=== PATIENT | male | born 1955 | race American Indian/Alaskan Native ===

== ENCOUNTER 2019-03-14 11:20 | Inpatient (IN) | payer OTHER ==
--- NOTE | 2019-03-14 11:43 | Event Note ---
ED Screening Note ED Screening Note: co cp htn hpld smoker mom dec cva dad dec liver disease mild obesity has had this in the past-- gerd This initial assessment/diagnostic orders/clinical plan/treatment(s) is/are subject to change based on patients health status, clinical progression and re- assessment by fellow clinical providers in the ED. Further treatment and workup at subsequent clinical providers discretion. Patient/guardian urged not to elope from the ED as their condition may be serious if not clinically assessed and managed. Initial orders include: ekg labs xray
[2019-03-14] MEDS ORDERED: ZOFRAN IV ONE (11:57)
[2019-03-14] MEDS ORDERED: ASPIRIN PO ONE (11:57)
[2019-03-14] MEDS ORDERED: NITRO-BID 2% TP ONE (11:57)
[2019-03-14] MEDS ORDERED: SUBLIMAZE IV ONE (11:57)
--- NOTE | 2019-03-14 12:01 | Emergency Department Report ---
HPI - General Chief Complaint: Chest Pain Time Seen by Provider: 03/14/19 11:40 - HPI HPI: Room 18 The patient is a 63-year-old male presenting with a chief complaint of chest pain. The patient states approximately 2 hours prior to arrival he developed substernal chest pain described as sharp and intermittent in nature. Patient states he did have shortness of breath and nausea with this pain but denies vomiting or diaphoresis. Patient denies cough or fever. Patient currently gives his chest pain a score of 3-4/10. The patient states he's never had a stress test or cardiac catheterization Location: Chest Duration: [See above] Quality: Sharp Severity:3-4/10 Modifying factors: [see above] Context: [see above] Mode of transportation: [not driving] ED Past Medical Hx - Past Medical History Hx Hypertension: Yes Additional medical history: sleep apnea, high cholesterol - Surgical History Past Surgical History?: No - Family History Family history: no significant - Social History Smoking Status: Current Every Day Smoker (1/2 pack per day) Substance Use Type: None (denies illicit drug use), Alcohol (rarely) ED Review of Systems ROS: Stated complaint: CHEST PAIN/LEG PAIN Other details as noted in HPI Constitutional: denies: diaphoresis Eyes: denies: eye pain ENT: denies: throat pain Respiratory: shortness of breath Cardiovascular: chest pain Endocrine: no symptoms reported Gastrointestinal: nausea. denies: vomiting Genitourinary: denies: dysuria Musculoskeletal: denies: back pain Skin: denies: lesions Neurological: denies: headache Physical Exam - Physical Exam Vital Signs: Vital Signs 03/14/19 03/14/19 11:41 11:48 Temperature 98 F Pulse Rate 75 73 Respiratory 20 Rate Blood Pressure 142/85 [Left] O2 Sat by Pulse 99 Oximetry Physical Exam: GENERAL: The patient is well-developed well-nourished male lying on stretcher n ot appearing to be in acute distress. [] HEENT: Normocephalic. Atraumatic. Extraocular motions are intact. Patient has moist mucous membranes. NECK: Supple. Trachea midline CHEST/LUNGS: Clear to auscultation. There is no respiratory distress noted. HEART/CARDIOVASCULAR: Regular. There is no tachycardia. There is no gallop rub or murmur. ABDOMEN: Abdomen is soft, nontender. Patient has normal bowel sounds. There is no abdominal distention. SKIN: There is no rash. There is no edema. There is no diaphoresis. NEURO: The patient is awake, alert, and oriented. The patient is cooperative. The patient has normal speech MUSCULOSKELETAL: There is no evidence of acute injury. ED Course Vital Signs 03/14/19 03/14/19 11:41 11:48 Temperature 98 F Pulse Rate 75 73 Respiratory 20 Rate Blood Pressure 142/85 [Left] O2 Sat by Pulse 99 Oximetry ED Medical Decision Making - Lab Data Result diagrams: 03/14/19 12:27 03/14/19 12:27 Laboratory Tests 03/14/19 03/14/19 12:27 12:27 WBC 5.5 RBC 4.17 Hgb 13.7 Hct 40.1 MCV 96 H MCH 33 H MCHC 34 RDW 14.9 Plt Count 294 Lymph % (Auto) 30.1 [place] % (Auto) 13.4 H Eos % (Auto) 2.7 Baso % (Auto) Django Developer Lymph # 1.6 [place] # 0.7 Eos # 0.1 Baso # 0.0 Seg Neutrophils % 53.1 Seg Neutrophils # 2.9 Sodium 136 L Potassium 4.1 Chloride 101.5 Carbon Dioxide 21 L Anion Gap 18 BUN 15 Creatinine 1.4 Estimated GFR > 60 BUN/Creatinine Ratio 11 Glucose 96 Calcium 9.1 Troponin T < 0.010 - EKG Data -: EKG Interpreted by Me EKG shows normal: sinus rhythm Rate: normal - EKG Data When compared to previous EKG there are: previous EKG unavailable Interpretation: nonspecific ST-T wave shankar (biphasic T-wave in lead 3) - Radiology Data Radiology results: report reviewed (chest x-ray), image reviewed (chest x-ray) interpreted by me: Chest x-ray-no focal infiltrate, no pneumothorax [facility] [address] [place] [address] XRay Report Signed Patient: STEPHAN PEREZ JR MR#: [id number] : 1955 Acct:[id number] Age/Sex: 63 / M ADM Date: 03/14/19 Loc: ED Attending Dr: Ordering Physician: PASCALE BURRELL MD Date of Service: 03/14/19 Procedure(s): XR chest 1V ap Accession Number(s): [id number] cc: PASCALE BURRELL MD Fluoro Time In Minutes: CHEST 1 VIEW 12:02 PM INDICATION / CLINICAL INFORMATION: Chest pain and shortness of breath. COMPARISON: None available. FINDINGS: SUPPORT DEVICES: Non e. HEART / MEDIASTINUM: The heart size and pulmonary vasculature are normal. The aorta is normal in caliber. LUNGS / PLEURA: No significant pulmonary or pleural abnormality. No pneumothorax. ADDITIONAL FINDINGS: No significant additional findings. IMPRESSION: No acute findings. Signer Name: Pierre Block MD Signed: 03/14/2019 12:54 PM Workstation Name: [email or web address] Transcribed By: RT Dictated By: Pierre Block MD Electronically Authenticated By: Pierre Block MD Signed Date/Time: 03/14/19 1254 DD/ 1252 TD/TT: - Differential Diagnosis ACS, pericarditis, GERD Critical care attestation.: If time is entered above; I have spent that time in minutes in the direct care of this critically ill patient, excluding procedure time. ED Disposition Clinical Impression: Chest pain Disposition: OP ADMIT IP TO THIS HOSP Is pt being admited?: Yes Does the pt Need Aspirin: Yes Condition: Fair Instructions: Chest Pain (ED) Time of Disposition: 13:17 (hospitalist notified (Dr Armstrong))
--- NOTE | 2019-03-14 12:58 | XRay Report ---
CHEST 1 VIEW 12:02 PM INDICATION / CLINICAL INFORMATION: Chest pain and shortness of breath. COMPARISON: None available. FINDINGS: SUPPORT DEVICES: None. HEART / MEDIASTINUM: The heart size and pulmonary vasculature are normal. The aorta is normal in jessica jenny. LUNGS / PLEURA: No significant pulmonary or pleural abnormality. No pneumothorax. ADDITIONAL FINDINGS: No significant additional findings. IMPRESSION: No acute findings. Signer Name: Pierre Block MD Signed: 03/14/2019 12:54 PM Workstation Name: [id number]
[2019-03-14 13:03] LABS: Eosinophils # (Auto) 0.1 K/mm3 (0.0-0.4); Eosinophils % (Auto) 2.7 % (0.0-4.3); Hematocrit 40.1 % (35.5-45.6); Hemoglobin 13.7 gm/dl (11.8-15.2); Lymphocytes # (Auto) 1.6 K/mm3 (1.2-5.4); Lymphocytes % (Auto) 30.1 % (13.4-35.0); Mean Corpuscular HGB Conc 34 % (32-34); Mean Corpuscular Volume 96 fl (84-94); Monocytes # (Auto) 0.7 K/mm3 (0.0-0.8); Monocytes % (Auto) 13.4 % (0.0-7.3); Platelet Count 294 K/mm3 (140-440); Red Blood Count 4.17 M/mm3 (3.65-5.03); Red Cell Distribution Width 14.9 % (13.2-15.2)
[2019-03-14 13:07] LABS: BUN/Creatinine Ratio 11; Blood Urea Nitrogen 15 mg/dL (9-20); Calcium 9.1 mg/dL (8.4-10.2); Hemolysis Index 15
[2019-03-14] MEDS ORDERED: SODIUM CHLORIDE FLUSH SYRINGE 10 ML IV PRN (20:27)
[2019-03-14] MEDS ORDERED: DILAUDID IV PRN (20:27)
[2019-03-14] MEDS ORDERED: PERCOCET 5/325 PO PRN (20:27)
[2019-03-14] MEDS ORDERED: ZOFRAN IV PRN (20:27)
[2019-03-14] MEDS ORDERED: TYLENOL PO PRN (20:27)
--- NOTE | 2019-03-14 20:27 | History and Physical Report ---
History of Present Illness Date of examination: 03/14/19 Date of admission: 03/14/19 13:18 Chief complaint: CC Chest pain for 2 hours DEWAXER History of present illness: 63 y/o AAM with pmh of bph onychomycosis Depression and HLD comes in for CP for 2 hours prior to arrival.Chest pain is substrenal.4 on a scale of 1 to 10.associated with nausea.No diaphoresis ,palpitations or SOB.No radiation.No exacerbating or relieving factors.No recent travel.No fever or chills. Chest pain is intermittent.Dull in character. Past Medical History Hypertension sleep apnea, high cholesterol Bph Onychomycosis Depression Surgical History Past Surgical History?: No Family History Family history: no significant Social History Smoking Status: Current Every Day Smoker (1/2 pack per day) Substance Use Type: None (denies illicit drug use), Alcohol (rarely) Review of Systems ROS: Stated complaint: CHEST PAIN/LEG PAIN Other details as noted in HPI Constitutional: denies: diaphoresis Eyes: denies: eye pain ENT: denies: throat pain Respiratory: shortness of breath Cardiovascular: chest pain Endocrine: no symptoms reported Gastrointestinal: nausea. denies: vomiting Genitourinary: denies: dysuria Musculoskeletal: denies: back pain Skin: denies: lesions Neurological: denies: headache 14 point review of systems done--otherwise negative Medications and Allergies Allergies Allergy/AdvReac Type Severity Reaction Status Date / Time No Known Allergies Allergy Verified 03/14/19 11:41 Home Medications Medication Instructions Recorded Confirmed Last Taken Type AtorvaSTATin [Lipitor] 20 mg PO QHS 03/14/19 03/14/19 1 Day Ago History ~03/13/19 Tamsulosin [Flomax] 0.4 mg PO QDAY 03/14/19 03/14/19 1 Day Ago History ~03/13/19 Terbinafine (Nf) [LamiSIL] 250 mg PO QDAY 03/14/19 03/14/19 1 Day Ago History ~03/13/19 buPROPion XL [Wellbutrin Xl] 150 mg PO QAM 03/14/19 03/14/19 1 Day Ago History ~03/13/19 Exam - Constitutional Vitals: Temp Pulse Resp BP Pulse Ox 98 F 51 L 13 133/76 100 03/14/19 11:41 03/14/19 14:00 03/14/19 14:00 03/14/19 14:00 03/14/19 14:00 General appearance: Present: no acute distress, well-nourished - EENT Eyes: Present: PERRL ENT: hearing intact, clear oral mucosa - Neck Neck: Present: supple, normal ROM - Respiratory Respiratory effort: normal Respiratory: bilateral: CTA - Cardiovascular Heart rate: 55 Rhythm: regular Heart Sounds: Present: S1 & S2. Absent: rub, click - Extremities Extremities: no ischemia, pulses intact, pulses symmetrical, No edema Peripheral Pulses: within normal limits - Abdominal General gastrointestinal: Present: soft, non-tender, non-distended, normal bowel sounds Male genitourinary: Present: normal - Rectal Rectal Exam: deferred - Integumentary Integumentary: Present: clear, warm, dry - Musculoskeletal Musculoskeletal: gait normal, strength equal bilaterally - Psychiatric Psychiatric: appropriate mood/affect, intact judgment & insight - Neurologic Neurologic: CNII-XII intact, moves all extremities - Allied Health Allied health notes reviewed: nursing, case management Results - Labs CBC & Chem 7: 03/14/19 12:27 03/15/19 01:56 Labs: Laboratory Last Values WBC 5.5 K/mm3 (4.5-11.0) 03/14/19 12:27 RBC 4.17 M/mm3 (3.65-5.03) 03/14/19 12:27 Hgb 13.7 gm/dl (11.8-15.2) 03/14/19 12:27 Hct 40.1 % (35.5-45.6) 03/14/19 12:27 MCV 96 fl (84-94) H 03/14/19 12:27 MCH 33 pg (28-32) H 03/14/19 12:27 MCHC 34 % (32-34) 03/14/19 12:27 RDW 14.9 % (13.2-15.2) 03/14/19 12:27 Plt Count 294 K/mm3 (140-440) 03/14/19 12:27 Lymph % (Auto) 30.1 % (13.4-35.0) 03/14/19 12:27 [place] % (Auto) 13.4 % (0.0-7.3) H 03/14/19 12:27 Eos % (Auto) 2.7 % (0.0-4.3) 03/14/19 12:27 Baso % (Auto) Deputy General Counsel 03/14/19 12:27 Lymph # 1.6 K/mm3 (1.2-5.4) 03/14/19 12:27 [place] # 0.7 K/mm3 (0.0-0.8) 03/14/19 12:27 Eos # 0.1 K/mm3 (0.0-0.4) 03/14/19 12:27 Baso # 0.0 K/mm3 (0.0-0.1) 03/14/19 12:27 Seg Neutrophils % 53.1 % (40.0-70.0) 03/14/19 12:27 Seg Neutrophils # 2.9 K/mm3 (1.8-7.7) 03/14/19 12:27 Sodium 136 mmol/L (137-145) L 03/14/19 12:27 Potassium 4.1 mmol/L (3.6-5.0) 03/14/19 12:27 Chloride 101.5 mmol/L (98-107) 03/14/19 12:27 Carbon Dioxide 21 mmol/L (22-30) L 03/14/19 12:27 18 mmol/L 03/14/19 12:27 BUN 15 mg/dL (9-20) 03/14/19 12:27 1.4 mg/dL (0.8-1.5) 03/14/19 12:27 Estimated GFR > 60 ml/min 03/14/19 12:27 11 % 03/14/19 12:27 Glucose 96 mg/dL (75-100) 03/14/19 12:27 Calcium 9.1 mg/dL (8.4-10.2) 03/14/19 12:27 < 0.010 ng/mL (0.00-0.029) 03/14/19 12:27 Short CBC 03/14/19 Range/Units 12:27 WBC 5.5 (4.5-11.0) K/mm3 Hgb 13.7 (11.8-15.2) gm/dl Hct 40.1 (35.5-45.6) % Plt Count 294 (140-440) K/mm3 BMP 03/14/19 03/15/19 12:27 01:56 Sodium 136 L 136 L Potassium 4.1 4.4 Chloride 101.5 101.7 Carbon Dioxide 21 L 26 BUN 15 20 Creatinine 1.4 1.5 Glucose 96 103 H Calcium 9.1 8.3 L Cardiac Enzymes 03/14/19 03/14/19 03/15/19 Range/Units 12:27 20:37 01:56 Troponin T < 0.010 < 0.010 < 0.010 (0.00-0.029) ng/mL Liver Function 03/15/19 Range/Units 01:56 Total Bilirubin 0.20 (0.1-1.2) mg/dL AST 14 (5-40) units/L ALT 17 (7-56) units/L Alkaline Phosphatase 95 (35-129) units/L Albumin 3.5 L (3.9-5) g/dL Urine 03/14/19 Range/Units 21:45 Urine Color Yellow (Yellow) Urine pH 6.0 (5.0-7.0) Ur Specific Gilliam 1.026 (1.003-1.030) Urine Protein <15 mg/dl (Negative) mg/dL Urine Glucose (UA) Neg (Negative) mg/dL - Imaging and Cardiology EKG: report reviewed (Sinus Bradcardia borderline ST elevation) Chest x-ray: report reviewed (NAF) Assessment and Plan Advance Directives: Yes (Full code) VTE prophylaxis?: Chemical Plan of care discussed with patient/family: Yes - Patient Problems (1) Chest pain Current Visit: Yes Status: Acute Qualifiers: Chest pain type: unspecified Qualified Code(s): R07.9 - Chest pain, unspecified Plan to address problem: Chest pain --r/o Mi protocol Serial Troponins Lexiscan in AM Costochondritis and Gerd in differential diagnosis (2) BPH (benign prostatic hyperplasia) Current Visit: Yes Status: Chronic Qualifiers: Lower urinary tract symptom presence: symptoms present Lower urinary tract symptom detail: urinary hesitancy Qualified Code(s): N40.1 - Benign prostatic hyperplasia with lower urinary tract symptoms; R39.11 - Hesitancy of micturition Plan to address problem: Cont Flomax (3) HLD (hyperlipidemia) Current Visit: Yes Status: Chronic Qualifiers: Hyperlipidemia type: mixed hyperlipidemia Qualified Code(s): E78.2 - Mixed hyperlipidemia Plan to address problem: Cont statins (4) Onychomycosis Current Visit: Yes Status: Chronic Plan to address problem: Cont Terbinafine (5) Depression Current Visit: Yes Status: Chronic Qualifiers: Depression Type: unspecified Qualified Code(s): F32.9 - Major depressive disorder, single episode, unspecified Plan to address problem: Cont wellbutrin (6) Nicotine dependence Current Visit: Yes Status: Chronic Qualifiers: Nicotine product type: cigarettes Plan to address problem: Coinselled about smoking cessation.-less than 10 minutes Nicoderm patch initiated (7) DVT prophylaxis Current Visit: Yes Status: Acute Plan to address problem: Initiated on Lovenox and GI prophylaxis
[2019-03-14] MEDS ORDERED: TERBINAFINE 250 MG PO SCH (20:30)
[2019-03-14] MEDS: PEPCID PO SCH (21:34)
[2019-03-14] MEDS: FLOMAX PO SCH (21:34)
[2019-03-14] MEDS ORDERED: LOVENOX SUB-Q SCH (22:00)
[2019-03-14] MEDS ORDERED: SODIUM CHLORIDE FLUSH SYRINGE 10 ML IV SCH (22:00)
[2019-03-14 22:04] LABS: Bilirubin,Urine NEG (Negative); Blood,Urine NEG (Negative); Color,Urine Yellow (Yellow); Protein,Urine <15 mg/dL mg/dL (Negative)
[2019-03-15 02:55] LABS: Albumin 3.5 g/dL (3.9-5); Calcium 8.3 mg/dL (8.4-10.2)
[2019-03-15] MEDS ORDERED: LEXISCAN IV ONE (08:12)
[2019-03-15] MEDS ORDERED: WELLBUTRIN XL PO SCH (10:00)
[2019-03-15] MEDS ORDERED: HABITROL TD SCH (10:00)
[2019-03-15 10:06] VITALS: BP 113/57
[2019-03-15] MEDS: PEPCID PO SCH (10:27)
[2019-03-15] MEDS: FLOMAX PO SCH (10:27)
--- NOTE | 2019-03-15 10:53 | Discharge Summary ---
Providers - Providers Date of Admission: 03/14/19 13:18 Attending physician: ROYCE HARGROVE MD [facility] Reason for admission: Chest pain Condition: Fair Pertinent studies: Cardiac stress test; negative for acute ischemia Hospital course: 63 y/o AAM with pmh of bph onychomycosis Depression and HLD comes in for CP for 2 hours prior to arrival.Chest pain is substrenal.4 on a scale of 1 to 10.associated with nausea.No diaphoresis ,palpitations or SOB.No radiation.No exacerbating or relieving factors.No recent travel.No fever or chills. Chest pain is intermittent.Dull in character. Patient is admitted to the floor, cardiac enzymes were negative, EKG no STEMI, stress test done this morning was normal. Chest pain subsided and patient is discharged home in a stable condition. Patient advised to take his home medications. Patient was hemodynamically stable at the time of discharge. Disposition: - TO HOME OR SELFCARE Time spent for discharge: 32 minutes - Discharge Diagnoses (1) Chest pain Status: Acute Qualifiers: Chest pain type: unspecified Qualified Code(s): R07.9 - Chest pain, unspecified (2) BPH (benign prostatic hyperplasia) Status: Chronic Qualifiers: Lower urinary tract symptom presence: symptoms present Lower urinary tract symptom detail: urinary hesitancy Qualified Code(s): N40.1 - Benign prostatic hyperplasia with lower urinary tract symptoms; R39.11 - Hesitancy of micturition (3) Depression Status: Chronic Qualifiers: Depression Type: unspecified Qualified Code(s): F32.9 - Major depressive disorder, single episode, unspecified (4) HLD (hyperlipidemia) Status: Chronic Qualifiers: Hyperlipidemia type: mixed hyperlipidemia Qualified Code(s): E78.2 - Mixed hyperlipidemia (5) Nicotine dependence Status: Chronic Qualifiers: Nicotine product type: cigarettes (6) Onychomycosis Status: Chronic Core Measure Documentation - Palliative Care Palliative Care/ Comfort Measures: Not Applicable - Core Measures Any of the following diagnoses?: none Exam - Physical Exam Narrative exam: Not in cardiopulmonary distress. The patient appeared well nourished and normally developed. Vital signs as documented. Head exam is unremarkable. No scleral icterus . Neck is without jugular venous distension, thyromegaly, or carotid bruits. Lungs are clear to auscultation. Cardiac exam reveals regular rate and Rhythm. First and second heart sounds normal. No murmurs, rubs or gallops. Abdominal exam reveals normal bowel sounds, no masses, no organomegaly and no aortic enlargement. Extremities are nonedematous and both femoral and pedal pulses are normal. COMMUNICATIONS PROGRAMMER: Alert and oriented 3. No focal weakness. - Constitutional Vitals: Temp Pulse Resp BP Pulse Ox 97.3 F L 60 18 113/57 97 03/15/19 07:25 03/15/19 07:25 03/15/19 07:25 03/15/19 09:18 03/15/19 07:25 Plan Activity: no restrictions Weight Bearing Status: Full Weight Bearing Diet: low salt Follow up with: KIESHA TAVERAS MD [Primary Care Provider] - 3-5 Days
--- NOTE | 2019-03-15 14:18 | Treadmill Report ---
NUCLEAR CARDIAC IMAGING INDICATION FOR PROCEDURE: Chest pain. Informed consent was obtained. Vasodilator stress was achieved with the intravenous administration of 0.4 mg of Lexiscan per protocol. Nuclear cardiac imaging was performed following the intravenous administration of technetium-99m Myoview for the rest and stress acquisitions per protocol. Images were acquired in a 180-degree arc from 45 degrees MCMAHAN to 45 degrees LPO. After data acquisition and reconstruction, the images were processed and reoriented into the vertical long, horizontal long, and horizontal short axis slices. A polar color map of the horizontal short axis slices was generated and reviewed. The rotating planar images were reviewed in cinematic format on the computer console. Gated SPECT imaging demonstrates a post-stress left ventricular ejection fraction of 62% with normal wall motion. Myocardial perfusion imaging demonstrates no significant cavity change between stress and rest. No significant stress-induced perfusion defects are seen. Nuclear cardiac imaging demonstrates grossly normal post-stress left ventricular systolic function with no significant evidence for myocardial ischemia or necrosis. PSYCHIATRIC# [id number] EMERSON/RAJWINDER
== END 2019-03-15 12:22 | disposition home or self-care (01) | DRG 206 ==
LOC: ED 11:20 → 4A 13:18
PROVIDERS: ADMIT Internal Medicine; ATTEND Internal Medicine
DX: M94.0 Chondrocostal junction syndrome [Tietze] (principal); R07.9 Chest pain, unspecified; N40.1 Benign prostatic hyperplasia with lower urinary tract symptoms; R39.11 Hesitancy of micturition; F32.9 Major depressive disorder, single episode, unspecified; E78.2 Mixed hyperlipidemia; F17.210 Nicotine dependence, cigarettes, uncomplicated; B35.1 Tinea unguium; G47.30 Sleep apnea, unspecified; I10 Essential (primary) hypertension; Z79.899 Other long term (current) drug therapy
CPT/HCPCS: 36415; 71045; 78452; 80048; 80053; 81001; 83036; 84484; 85025; 87116; 93005; 93010; 93017; 94760; 99406; G0378; A9270-GY; A9502; J1650; J2405; J2785; J3010

== ENCOUNTER 2019-09-13 13:19 | Emergency (ER) | payer OTHER ==
--- NOTE | 2019-09-13 14:56 | Event Note ---
ED Screening Note Date of service: 09/13/19 Time: 14:54 ED Screening Note: 64 y o male presents with prod cough since monday states cough up blood today with vomitting cc of fever This initial assessment/diagnostic orders/clinical plan/treatment(s) is/are subject to change based on patients health status, clinical progression and re- assessment by fellow clinical providers in the ED. Further treatment and workup at subsequent clinical providers discretion. Patient/guardian urged not to elope from the ED as their condition may be serious if not clinically assessed and managed. Initial orders include: cxr, r/o pneumonia acc eval
[2019-09-13 14:57] VITALS: BP 147/74
--- NOTE | 2019-09-13 15:48 | XRay Report ---
CHEST 2 VIEWS INDICATION: cough,fever. COMPARISON: 03/14/2019 FINDINGS: Support devices: None. Heart: Within normal limits. Lungs/pleura: No acute air space or interstitial disease. No pneumothorax. Additional findings: None. IMPRESSION: Unremarkable chest films. Signer Name: Cesar Donovan Jr, MD Signed: 09/13/2019 3:43 PM Workstation Name: [id number]
--- NOTE | 2019-09-13 19:53 | Emergency Department Report ---
- General Chief Complaint: Upper Respiratory Infection Stated Complaint: COUGH/FEVER Time Seen by Provider: 09/13/19 18:35 Source: patient Mode of arrival: Ambulatory Limitations: No Limitations - History of Present Illness MD Complaint: cough, sore throat, nasal congestion -: Gradual, days(s) (10), week(s) (1) Severity: mild, moderate Severity scale (0 -10): 0 Quality: dull Consistency: constant Improves With: nothing Associated Symptoms: headache, rhinorrhea, nasal congestion, cough, nausea. denies: right sweats, epistaxis, hoarseness - Related Data Home Medications Medication Instructions Recorded Confirmed Last Taken AtorvaSTATin [Lipitor] 20 mg PO QHS 03/14/19 03/14/19 1 Day Ago ~03/13/19 Tamsulosin [Flomax] 0.4 mg PO QDAY 03/14/19 03/14/19 1 Day Ago ~03/13/19 Terbinafine (Nf) [LamiSIL] 250 mg PO QDAY 03/14/19 03/14/19 1 Day Ago ~03/13/19 buPROPion XL [Wellbutrin XL] 150 mg PO QAM 03/14/19 03/14/19 1 Day Ago ~03/13/19 Previous Rx's Medication Instructions Recorded Last Taken Type ALBUTEROL Inhaler (OR & NICU) 2 puff IH QID PRN #1 inhalation 09/13/19 Unknown Rx [ProAir HFA Inhaler] Azithromycin [Zithromax] 500 mg PO QDAY #5 tablet 09/13/19 Unknown Rx methOCARBAMOL [Robaxin TAB] 750 mg PO Q8H PRN #14 tablet 09/13/19 Unknown Rx predniSONE [Deltasone] 50 mg PO QDAY #5 tab 09/13/19 Unknown Rx Allergies Allergy/AdvReac Type Severity Reaction Status Date / Time No Known Allergies Allergy Verified 03/14/19 11:41 ED Review of Systems ROS: Stated complaint: COUGH/FEVER Other details as noted in HPI Comment: All other systems reviewed and negative ED Past Medical Hx - Past Medical History Previous Medical History?: Yes Hx Hypertension: Yes Hx Congestive Heart Failure: No Hx Diabetes: No Hx Asthma: No Hx COPD: No Additional medical history: sleep apnea, high cholesterol - Surgical History Past Surgical History?: No - Social History Smoking Status: Current Every Day Smoker Substance Use Type: None - Medications Home Medications: Home Medications Medication Instructions Recorded Confirmed Last Taken Type AtorvaSTATin [Lipitor] 20 mg PO QHS 03/14/19 03/14/19 1 Day Ago History ~03/13/19 Tamsulosin [Flomax] 0.4 mg PO QDAY 03/14/19 03/14/19 1 Day Ago History ~03/13/19 Terbinafine (Nf) [LamiSIL] 250 mg PO QDAY 03/14/19 03/14/19 1 Day Ago History ~03/13/19 buPROPion XL [Wellbutrin XL] 150 mg PO QAM 03/14/19 03/14/19 1 Day Ago History ~03/13/19 ALBUTEROL Inhaler (OR & NICU) 2 puff IH QID PRN #1 inhalation 09/13/19 Unknown Rx [ProAir HFA Inhaler] Azithromycin [Zithromax] 500 mg PO QDAY #5 tablet 09/13/19 Unknown Rx methOCARBAMOL [Robaxin TAB] 750 mg PO Q8H PRN #14 tablet 09/13/19 Unknown Rx predniSONE [Deltasone] 50 mg PO QDAY #5 tab 09/13/19 Unknown Rx ED Physical Exam - General Limitations: No Limitations General appearance: alert, in no apparent distress - Head Head exam: Present: atraumatic, normocephalic - Eye Eye exam: Present: normal appearance, PERRL, EOMI - ENT ENT exam: Present: normal exam, mucous membranes moist - Neck Neck exam: Present: normal inspection - Respiratory Respiratory exam: Present: normal lung sounds bilaterally, rhonchi. Absent: respiratory distress, wheezes, rales - Cardiovascular Cardiovascular Exam: Present: regular rate, normal rhythm. Absent: systolic murmur, diastolic murmur, rubs, gallop - GI/Abdominal GI/Abdominal exam: Present: soft, normal bowel sounds - Rectal Rectal exam: Present: deferred - Extremities Exam Extremities exam: Present: normal inspection - Back Exam Back exam: Present: normal inspection - Neurological Exam Neurological exam: Present: alert, oriented X3 - Psychiatric Psychiatric exam: Present: normal affect, normal mood - Skin Skin exam: Present: warm, dry, intact, normal color. Absent: rash ED Course Vital Signs 09/13/19 13:25 Temperature 98.2 F Pulse Rate 65 Respiratory 16 Rate Blood Pressure 147/74 O2 Sat by Pulse 97 Oximetry ED Medical Decision Making - Radiology Data Radiology results: report reviewed [facility] [address] [place] [address] XRay Report Signed Patient: STEPHAN PEREZ JR MR#: [id number] : 1955 Acct:[id number] Age/Sex: 64 / M ADM Date: 09/13/19 Loc: ED Attending Dr: Ordering Physician: GILBERTO EM Date of Service: 09/13/19 Procedure(s): XR chest routine 2V Accession Number(s): [id number] cc: GILBERTO EM Fluoro Time In Minutes: CHEST 2 VIEWS INDICATION: cough,fever. COMPARISON: 03/14/2019 FINDINGS: Support devices: None. Heart: Within normal limits. Lungs/pleura: No acute air space or interstitial disease. No pneumothorax. Additional findings: None. IMPRESSION: Unremarkable chest films. Signer Name: Cesar Donovan Jr, MD Signed: 09/13/2019 3:43 PM Workstation Name: [id number] Transcribed By: TTR Dictated By: CESAR DONOVAN JR, MD Electronically Authenticated By: CESAR DONOVAN JR, MD Signed Date/Time: 09/13/19 154 DD/ 42 TD/TT: - Medical Decision Making This patient presents with acute cough, most consistent with bronchitis. Differential diagnosis includes asthma, bronchitis, hyperreactive airway disease, pneumonia. Presentation not consistent with acute bacterial pneumonia, influenza, asthma, transient airway hyperresponsiveness. Presentation not consistent with chronic causes of cough (including GERD, asthma, postnasal discharge, medication side effect, CHF, lung cancer or mass). Plan: \CXR, testicular with normal supportive care supportive care, but evaluated by his primary care provider in 2-3 days Critical care attestation.: If time is entered above; I have spent that time in minutes in the direct care of this critically ill patient, excluding procedure time. ED Disposition Clinical Impression: Cough, Chest congestion Disposition: DC-01 TO HOME OR SELFCARE Is pt being admited?: No Does the pt Need Aspirin: No Condition: Stable Instructions: Acute Bronchitis (ED) Referrals: SHAY MARTE [Other] - 3-5 Days
== END 2019-09-13 20:20 | disposition home or self-care (01) ==
LOC: ED 13:19
DX: R51 Headache (principal); J34.89 Other specified disorders of nose and nasal sinuses; R09.81 Nasal congestion
CPT/HCPCS: 71046; 99283